=== PATIENT | female | born 1995 | race Caucasian/White ===

== ENCOUNTER 2018-05-16 08:55 | Emergency (ER) | payer OTHER ==
[~2018-05-16] VITALS: Ht 175.3 cm; Wt 102.6 kg
[2018-05-16 09:02] VITALS: BP 123/86
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
--- NOTE | 2018-05-16 09:28 | NUR ---
XRAY BY BEDSIDE
[2018-05-16] MEDS ORDERED: IBUPROFEN 600 MG TAB PO ONE (09:30)
[2018-05-16 10:30] VITALS: BP 123/86
== END 2018-05-16 10:30 | disposition home or self-care (01) ==
LOC: MED 08:55
DX: S60.011A Contusion of right thumb without damage to nail, initial encounter (principal); Z79.899 Other long term (current) drug therapy; W23.0XXA Caught, crushed, jammed, or pinched between moving objects, initial encounter; Y93.89 Activity, other specified; Y92.89 Other specified places as the place of occurrence of the external cause; Y99.8 Other external cause status
CPT/HCPCS: 73140; 99284

== ENCOUNTER 2021-02-10 14:47 | Emergency (ER) | payer OTHER ==
[~2021-02-10] VITALS: Ht 172.7 cm; Wt 116.1 kg
[2021-02-10 14:59] VITALS: BP 133/82
--- NOTE | 2021-02-10 15:40 | NUR ---
PT AMBULATED TO BED 07.
[2021-02-10] MEDS ORDERED: KETOROLAC 30 MG/ML VIAL IM ONE (15:55)
--- NOTE | 2021-02-10 16:07 | NUR ---
XRAY AT BEDSIDE
--- NOTE | 2021-02-10 16:15 | NUR ---
25 yo f c/o left ankle pain s/p fall from stairs (3 steps) 2 hours ago. /10, throbbing aggravated bt walking. reports numbness to area. denies head trauma, loc. no medications taken. pmh: none meds:none nka
[2021-02-10] MEDS ORDERED: NAPR-54 PO (16:44)
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
[2021-02-10 16:55] VITALS: BP 133/82
== END 2021-02-10 16:55 | disposition home or self-care (01) ==
LOC: MED 14:47
DX: M25.572 Pain in left ankle and joints of left foot (principal); X50.9XXA Other and unspecified overexertion or strenuous movements or postures, initial encounter; Y93.89 Activity, other specified; Y92.89 Other specified places as the place of occurrence of the external cause; Y99.8 Other external cause status
CPT/HCPCS: 73610; 96372; 99283; J1885